=== PATIENT | female | born 1970 | race Caucasian/White ===

== ENCOUNTER 2018-03-01 07:51 | Day surgery (SDC) | payer OTHER ==
[~2018-03-01] VITALS: Ht 160 cm; Wt 45.4 kg
[~2018-03-01 07:51] MED LIST: BUDE3CAP PO; CALC1TAB87 PO; CALCTAB94 PO; CHOL5000 PO; LACT1.5C PO; MERC50TA PO; METO25TA3 PO; MULTTAB67 PO; PENT500C2 PO; REST30CA PO; SERT-129 PO; TRAM50 PO; [UNRECOGNIZED DRUG - CODE] PO
[2018-03-01 08:24] VITALS: BP 128/82; PULSE 48; RESP 18; TEMP 97.7; O2SAT 97
[2018-03-01] MEDS ORDERED: METOPROLOL TARTRATE 25 MG TAB PO PRN (08:30)
[2018-03-01] MEDS ORDERED: SODIUM CHLORID 0.9% 500 ML IV PRN (08:30)
[2018-03-01] MEDS ORDERED: POVIDONE IODINE 5% (ANTISEPSIS KIT) 4 APPLICATIONS EACH NARE PRN (08:30)
[2018-03-01] MEDS ORDERED: LACTATED RINGER'S 1000 ML IV PRN (08:30)
[2018-03-01] MEDS ORDERED: CHLORHEXIDINE GLUCONATE 2 % 1 PACK (2 CLOTHS) TOPICAL PRN (08:30)
[2018-03-01 08:31] LABS: AUTOMATED NEUTROPHIL # 5.8 TH/MM3 (1.8-7.7); BASOPHIL % 0.4 % (0.0-2.0); EOSINOPHIL # 0.1 TH/MM3 (0-0.4); EOSINOPHIL % 0.7 % (0.0-4.0); HEMATOCRIT 41.1 % (35.0-46.0); HEMOGLOBIN 13.8 GM/DL (11.6-15.3); LYMPH % 29.1 % (9.0-44.0); LYMPHOCYTE # 2.7 TH/MM3 (1.0-4.8); MEAN CELL VOLUME 90.3 FL (80.0-100.0); MEAN CORPUSCULAR HEMOGLOBIN 30.4 PG (27.0-34.0); MEAN CORPUSCULAR HGB CONC 33.7 % (32.0-36.0); MEAN PLATELET VOLUME 9.6 FL (7.0-11.0); MONO % 7.7 % (0.0-8.0); MONOCYTE # 0.7 TH/MM3 (0-0.9); NEUT % 62.1 % (16.0-70.0); PLATELET COUNT 199 TH/MM3 (150-450); RED BLOOD COUNT 4.55 MIL/MM3 (4.00-5.30); RED CELL DISTRIBUTION WIDTH 13.3 % (11.6-17.2); WHITE BLOOD COUNT 9.3 TH/MM3 (4.0-11.0)
[2018-03-01] MEDS ORDERED: DIPH2.5T14 PO (08:31)
[2018-03-01] MEDS ORDERED: AZAT50 PO (08:31)
[2018-03-01] MEDS ORDERED: BALS750C PO (08:31)
[2018-03-01] MEDS ORDERED: DICY20TA10 PO (08:31)
[2018-03-01] MEDS ORDERED: ALPR0.5T3 PO (08:31)
[2018-03-01] MEDS ORDERED: HUMI40KI SQ (08:31)
[2018-03-01 08:40] LABS: INTERNATIONAL NORMALIZED RATIO 1.1 RATIO; PROTHROMBIN TIME - PATIENT 10.8 SEC (9.8-11.6)
[2018-03-01] MEDS ORDERED: [UNRECOGNIZED DRUG - CODE] PO (08:43)
[2018-03-01 08:52] LABS: BICARBONATE 28.7 MEQ/L (21.0-32.0); CALCIUM 9.3 MG/DL (8.5-10.1); CREATININE 0.92 MG/DL (0.50-1.00)
[2018-03-01] MEDS ORDERED: LIDOCAINE HCL 2% 20 ML VIAL ONE (10:08)
[2018-03-01] MEDS ORDERED: LEVOFLOXACIN 500 MG PREMIX INJ 100 ML IV ONE (10:09)
[2018-03-01] MEDS ORDERED: VANCOMYCIN 500 MG VIAL ONE (10:09)
[2018-03-01] MEDS ORDERED: MIDAZOLAM HCL 2 MG/2 ML VIAL ONE (10:46)
--- NOTE | 2018-03-01 11:05 | CATHPROC ---
Patient Name: JACQUES TORRES Study #: [id number] Initial MD: Nithin Serna Date of : 1970 Study Date: 03/01/2018 Cardiac Catheterization Report 03/01/2018 11:04:46 AM Financial #: [id number] 1 of 8 Patient Name: JACQUES TORRES Study #: [id number] Initial MD: Nitihn Serna Date of : 1970 Study Date: 03/01/2018 Entire Case Report Patient Information Patient Name JACQUES TORRES Date of 1970 Age 48 years Financial # [id number] Gender F AlternateID Lab Number 6 Room Number DC07 Height (in) 63.0 Height (cm) 160.0 BSA 1.44 Weight (lbs) 99.9 Weight (kg) 45.4 Patient Address/Phone Number Home Address [facility] Home Phone Number [phone] [facility] [id number] Study Information Study Number Admission Scheduled Start Study Start [id number] Mar 01 2018 7:51AM 03/01/2018 Mar 01 2018 9:15AM [place] [facility] Cardiac Pacer/ICD Admit Source Facility Department Other [facility] Physician and Clinical Staff Initial Nithin Allen [employer] C[employer] Supervisor Kae Prather,RT(R) TECH2 Other Anesthesia, VAULT CASHIER Recorder Jeannette Buckner,CANDI Scrub Purvi Tirado RCIS 03/01/2018 11:04:46 AM Financial #: [id number] 2 of 8 Patient Name: JACQUES TORRES Study #: [id number] Initial MD: Nithin Serna Date of : 1970 Study Date: 03/01/2018 Equipment Time Community Outreach Worker Description Size Mfg Part Number Used/Scraped DERMABOND, ADHESIVE SKIN [id number] 09:20 CORDIS/PACER * Used GLUE MINI *[id number] 09:20 MEDLINE INDUSTRIES SUTURE, STRIP PLUS 1/2" * Used *[id number] 09:20 MEDLINE PACER SUGGS, LIMB * 2530 *[id number] Used [id number] 09:20 MEDLINE PACER PACK, PACER CUSTOM * Used *[id number] 10:48 Needle Sponge Count 1 1 Used 10:48 Needle Sponge Count 2 22 Used 10:48 Needle Sponge Count 20 200 Used SUTURE, 2-0 VICRYL [CT1] ([id number]) [id number] 09:20 [employer],WARM AIR CCL * Used *[id number] [facility] PAD, ELECTROSURGICAL 09:20 * [id number] *[id number] Used SURGICAL GROUNDING ORANGE 10:49 VITATRON MEDTRON[employer] DEFIBRILLATOR, VISIA AF MRI VR VVEVVIR [id number] Used [id number] 10:47 VITATRON [employer]TRON[employer] PLASMABLADE, PEAD 3.0S * Used *[id number] Equipment Model, Serial, Lot Number and Expiration Data Description Model Number Serial Number Lot Number Expiration Date DEFIBRILLATOR, VISIA AF MRI VR [id number] 10-29-2018 Insurance Information Insurance Payor Private Health Insurance Third Democrat Third Democrat Number [facility] History: Allergies Allergy Reaction penicillin G RASH History: Risk Factors Hypertension Previous SD Yes Yes Labs Hgb (g/dl) Hct (%) RBC (MIL/MM3) WBC (l/cumm) Platelets (thousands) 11.60-17.00 35.00-51.00 4.00-5.90 4.00-11.00 150.00-450.00 13.0 41 4.5 9.3 199 03/01/2018 11:04:46 AM Financial #: [id number] 3 of 8 Patient Name: JACQUES TORRES Study #: [id number] Initial MD: Nithin Serna Date of : 1970 Study Date: 8 Glucose (mg/dl) BUN (mg/dl) Creatinine (mg/dl) BUN:Creatinine (1:x) 74.00-106.00 7.00-18.00 0.50-1.30 10.00-20.00 94 8 0.9 8.9 Na (meq/l) K (meq/l) 136.00-145.00 3.50-5.10 141 3.8 INR (PTT:PT) 0.90-1.10 1.1 Medication Medication Total Dose (Bolus/Oral) Medication Total Dosage/Unit 2% XYLOCAINE 50 mL Medications (Bolus/Oral) Medication Time Given Dosage/Unit Administered By Reason 2% XYLOCAINE 03/01/2018 10:46:35 AM 50 mL Nithin Serna 50 mL 2% XYLOCAINE given in lab by Nithin Serna in Left Upper Chest via Subcutaneous. Medication (Drip) Medication Time Given Dosage/Unit Concentration/Unit Diluent (ml) Solution LEVAQUIN 03/01/2018 10:11:55 AM 100 mL/hr 500 100 NaCl .9 100 mL/hr LEVAQUIN given in lab by Jeannette Buckner, CANDI in Right Antecubital via Peripheral IV. Pump/ Drip Flow = 0 ml/hr using NaCl .9 with a concentration of 500 in 100 ml. Ordered by Nithin Serna. Reason: As per physicians verbal order. VANCOMYCIN DRIP 03/01/2018 10:09:19 AM 1 g 1 g VANCOMYCIN DRIP given by Jeannette Buckner RN in Right Antecubital via Peripheral IV. Ordered by Nithin Serna. Reason: As per physicians verbal order. 03/01/2018 11:04:46 AM Financial #: [id number] 4 of 8 Patient Name: JACQUES TORRES Study #: [id number] Initial MD: Nithin Serna Date of : 1970 Study Date: 03/01/2018 Initial Case Assessment Cardiovascular HR Rhythm NIBP Chest Pain 51 sb 111/71 0 Edema Present Skin color Skin None Normal Warm Dry Circulatory - Right Pulses Radial 2 Scale (0,1,2,3,4,d) Circulatory - Left Pulses Radial 2 Scale (0,1,2,3,4,d) Circulatory - Lower Extremities Color Lower Right Color Lower Left Normal Normal Neurological State Oriented to time-place- Alert Moves all extremities person Respiration - General Respiration Rate SpO2 (%) (B/min) 16 100 03/01/2018 11:04:46 AM Financial #: [id number] 5 of 8 Patient Name: JACQUES TORRES Study #: [id number] Initial MD: Nithin Serna Date of : 1970 Study Date: 03/01/2018 Final Case Assessment Cardiovascular HR Rhythm NIBP Chest Pain 55 sr 107/66 0 Edema Present Skin color Skin None Normal Warm Dry Circulatory - Left Pulses Circulatory - Lower Extremities Color Lower Right Color Lower Left Normal Normal Neurological State Oriented to time-place- Lethargic Moves all extremities person Respiration - General Respiration Rate SpO2 (%) O2 (lpm) (B/min) 16 100 6 Chronological Log Time Study Chronological Log 9:44:17 Patient arrived via Bed. 9:44:18 Patient Name, D.O.B, / Armband Verified By R.N. 9:44:20 Consent signed by the physician and the patient and verified by the [facility] staff. 9:44:21 Pre-op and post- op instructions given; patient acknowledges understanding of instructions. 9:44:22 Verbal Stimulation=2 Physical Stimulation=2 Airway=2 Respiration=2 TOTAL=8. (0=absent, 1=li mited, 2=present) 9:44:23 Patient has been NPO for More than 6Hrs. 9:44:24 Skin Breakdown- 9:44:24 Patient Warmer Placed on the Table. 9:44:25 Disposable Defibrillator Pads Placed On Patient. 9:44:25 Jatinder Prominences Protected 9:44:27 A # 20 IV was noted in the Antecubital (left). Grade = 0 0.9ns kvo 9:44:29 A # 20 IV was noted in the Antecubital (right). Grade = 0 0.9ns kvo 9:44:31 History and physical on the chart or being dictated. 10:00:00 Medtroni rep present 10:00:30 Table restraints applied according to hospital policy 03/01/2018 11:04:46 AM Financial #: [id number] 6 of 8 Patient Name: JACQUES TORRES Study #: [id number] Initial MD: Nithin Serna Date of : 1970 Study Date: 03/01/2018 10:00:35 2% CHLORHEXIDINE GLUCONATE WASH AND NASAL SWIPE DONE PRIOR TO PROCEDURE. 10:00:37 Bovie ground pad applied to: right thigh Assessment: Initial Case, HR=51 BPM, Rhythm=sb, MYWW=124/71 mmhg, Chest Pain=0, Edema=None, Col or=Normal, Skin = Warm, Dry Right Pulses: Radial=2 Left Pulses: Radial=2 10:02:56 Lower Right Extremities: Color=Normal Lower Left Extremities: Color=Normal Neurological: State=Alert, Ox3, DUKES Respiration: Resp=16 B/min, WaF6=775 % 1 g VANCOMYCIN DRIP given by Jeannette Buckner, CANDI in Right Antecubital via Peripheral IV. Order ed by Kareem, 10:09:19 Nithin. Reason: As per physicians verbal order. 100 mL/hr LEVAQUIN given in lab by Jeannette Buckner, CANDI in Right Antecubital via Peripheral IV. Pump/Drip Flow = 0 10:11:55 ml/hr using NaCl .9 with a concentration of 500 in 100 ml. Ordered by Nithin Serna. Reason : As per physicians verbal order. 10:18:16 Anesthesia at bedside. Assumes care of patient. Misty 10:32:41 Left Upper Chest Prepped w Betadine Prep. 10:33:20 Reference ECG taken First Sponge And Instrument Count Done by Purvi Tirado RCIS. 10:37:36 Hypo's: 1, Sponges: 20, Bovie/scratch: 2 Sutures: 3, Blades: 1, Instruments: 26, Syveck Patches: ~SYVECK PATCH~ 10:39:07 MD paged 10:40:29 MD responded 10:43:53 MD arrived. Time Out. Correct patient, procedure, procedure equipment, site and side verified with physicia n present. Time 10:45:51 concurred by MD, individual staff and VAULT CASHIER. 10:45:52 Case Start 10:46:35 50 mL 2% XYLOCAINE given in lab by Nithin Serna in Left Upper Chest via Subcutaneous. 10:47:29 Surgical Incision Made. 10:49:00 Pocket flushed with antibiotic solution 10:50:29 A DEFIBRILLATOR, VISIA AF MRI VR VVEVVIR was connected and placed in the pocket. 10:52:24 Implant Procedure was performed. 10:52:29 A ICD Implant . (Single) Gen change Second Sponge And Instrument Count Done by Purvi Tirado RCIS. 10:53:13 Hypo's: 1, Sponges: 20, Bovie/scratch: 2 Sutures: 3, Blades: 1, Instruments: 26, Syveck Patches: ~SYVECK PATCH~ 10:57:48 The pocket was closed. 10:58:24 DOCU called. Spoke to Mara 11:00:00 Bedside Report will be given. 11:00:12 Steri-strips and a sterile dressing applied to site. 11:02:21 Case End 11:03:46 No case complications noted. 11:03:47 Cine recording checked. 03/01/2018 11:04:46 AM Financial #: [id number] 7 of 8 Patient Name: JACQUES TORRES Study #: [id number] Initial MD: Nithin Serna Date of : 1970 Study Date: 03/01/2018 11:03:50 Implantable Device card placed in patient's chart. Assessment: Final Case, HR=55 BPM, Rhythm=sr, ZAMN=067/66 mmhg, Chest Pain=0, Edema=None, [place] r=Normal, Skin = Warm, Dry Left Pulses: Radial=2 11:04:01 Lower Right Extremities: Color=Normal Lower Left Extremities: Color=Normal Neurological: State=Lethargic, Ox3, DUKES Respiration: Resp=16 B/min, InU0=039 %, O2=6 lpm 11:10:53 Patient moved to [facility] End Study - Contrast Media Used In Study Contrast Total Opened (mL) Total Used (mL) Total Wasted (mL) Unspecified 0 0 0 End Study - Maximum Contrast Load Max Contrast Load (mL) 252.3 End Study - Radiation Exposure Fluoro Time (minutes) 0.1 End Study - Patient Disposition Complications Transferred To Interventional Outcome No Telemetry Bed successful 03/01/2018 11:04:46 AM Financial #: [id number] 8 of 8
--- NOTE | 2018-03-01 11:13 | PD.CARD ---
Dual Defib Replacement PROCEDURE DATE: Mar 01, 2018 NYHA Classification: Class I (Mild) Prevention: Secondary Dual Defib Replacement PROCEDURE 1. Single-chamber defibrillator removal. 2. Single-chamber defibrillator replacement. 3. Pocket revision. Ms. Moreno is a 48 -year-old female with hx of coronary artery disease, CABG, Previous cardiac arrest, EF 65%, Defibrillator currently end of life, admitted for generator replacement and device testing. The risks, the nature and the benefit of the procedure clearly stated to her. The risks include pneumothorax, cardiac perforation, stroke and even . She understood and agreed to proceed. PROCEDURE After written informed consent was obtained, the patient was brought to the EP lab where she was prepped and draped in the usual sterile fashion. Conscious sedation was initiated and maintained throughout the procedure by anesthesiologist. Once sedation was verified, the left infraclavicular area was anesthetized with 2% Xylocaine. Using #11 blade scalpel, a 3-cm incision was made over the existing generator. The incision was then taken down deep fascial layers generator exposed. Once exposed, it was removed from the pocket. Scar tissue was removed around the lead pocket revision was performed. Pocket was expanded. Then, the lead was disconnected from the generator and tested. After adequate pacing and sensing thresholds were obtained. The lead was connected to the new generator and placed into the pocket. I then proceeded with wound closure. The deep fascial layer was approximated using 2-0 Vicryl suture in a continuous fashion. The subcutaneous layer was approximated using 2-0 Vicryl suture in a continuous fashion. The subcuticular layer was approximated using 2-0 Vicryl suture in a continuous fashion. Dermabond adhesive was applied to the wound followed by sterile pressure dressing. There was no complication. The patient tolerated procedure. Blood loss minimal. 1. Explanted hardware: The explanted defibrillator is a Medtronic model number [id number], serial number [id number]. That was implanted in 2007. For information about existing lead please refer to previous dictation. 2. Implanted hardware: The implanted defibrillator generator is a Medtronic, model number [id number], serial number [id number]. 3. Threshold: The right ventricular pacing threshold in the bipolar mode was 0.75 volts at 0.4 milliseconds. Lead impedance 455 ohms and R-wave at 15.6 mV. 4. Settings: The device is set in a VVI 40. Defibrillatory portioned for two zones, one zone for ventricular tachycardia between 160 to 240 beats per minute. Initial therapy consists of one burst of ATP, one ramp, 81%, 10 pulses, 10 ms decremental followed by 20 then 25and all subsequent shocks at 35defibrillatory shock. Second zone for ventricular fibrillation above 240 beats per minute, first therapy at 25 and all subsequent shocks at 35 joule defibrillatory shock. CONCLUSIONS Successful defibrillator removal, defibrillator replacement. COMMENT/RECOMMENDATIONS The patient will be transferred to telemetry unit. She will be observed, when stable can be discharged home Nithin Serna MD Mar 01, 2018 11:13
[2018-03-01] MEDS ORDERED: ONDANSETRON HCL 4 MG/2 ML VIAL IV PUSH PRN (11:15)
[2018-03-01] MEDS ORDERED: SODIUM CHLORIDE 0.9% FLUSH 10 ML FLUSH IV FLUSH PRN (11:15)
[2018-03-01] MEDS ORDERED: ACETAMINOPHEN/CODEINE 300 MG/30 MG TAB PO PRN ×2 (11:15)
[2018-03-01] MEDS ORDERED: HYDR-3366 PO (11:17)
[2018-03-01] MEDS ORDERED: LEVA500T33 PO (11:17)
[2018-03-01] MEDS ORDERED: DO NOT ADM ANY ANTICOAGULANT DRUGS PRN (11:28)
[2018-03-01 11:55] VITALS: BP 131/67; PULSE 56; RESP 16; TEMP 98; O2SAT 99
[2018-03-01] MEDS ORDERED: ePHEDrine/NS 25 MG/5 ML SYRINGE IV ONE (12:00)
[2018-03-01] MEDS ORDERED: PROPOFOL 200 MG/20 ML AMP IV ONE (12:00)
--- NOTE | 2018-03-01 20:43 | EKG ---
Date Performed: 03/01/2018 Time Performed: 08:28:20 PTAGE: 48 years EKG: Sinus bradycardia. Left bundle branch block Abnormal ECG PREVIOUS TRACING : 04/07/2015 23.57 Since the previous tracing, no significant change noted DOCTOR: Jonathan Mars Interpretating Date/Time 03/01/2018 20:42:26
[2018-03-01] MEDS ORDERED: SODIUM CHLORIDE 0.9% FLUSH 10 ML FLUSH IV FLUSH SCH (21:00)
== END 2018-03-01 13:14 | disposition home or self-care (01) ==
LOC: HDOC 07:51 → HDIC 07:52 → HDOC 13:14
PROVIDERS: ATTEND Internal Medicine Interventional Cardiology
DX: Z45.02 Encounter for adjustment and management of automatic implantable cardiac defibrillator (principal); I42.1 Obstructive hypertrophic cardiomyopathy; I47.2 Ventricular tachycardia; I44.7 Left bundle-branch block, unspecified; I34.0 Nonrheumatic mitral (valve) insufficiency; I25.2 Old myocardial infarction; I95.9 Hypotension, unspecified; E78.5 Hyperlipidemia, unspecified; F17.210 Nicotine dependence, cigarettes, uncomplicated; R06.02 Shortness of breath
CPT/HCPCS: 00530; 33262; 80048; 85025; 85610; 85730; 86850; 86900; 86901; 93005; C1722; J1956; J2250; J3010; J3370